=== PATIENT | female | born 2000 | race Caucasian/White ===

== ENCOUNTER 2022-05-16 17:05 | Outpatient (CLI) | payer OTHER, SELFPAY | END 2022-05-16 17:06 | disposition home or self-care (01) | LOC: AMB 05-18 16:49 | PROVIDERS: PCP Family Medicine; Visit Provider Family Medicine | DX: G40.909 Epilepsy, unspecified, not intractable, without status epilepticus (principal) | CPT/HCPCS: A0425; A0427 ==

== ENCOUNTER 2022-05-16 17:34 | Emergency (ER) | payer OTHER, SELFPAY ==
[2022-05-16] VITALS (7 sets, daily range): BP systolic 104–117; BP diastolic 55–78; PULSE 71–98; RESP 9–18; TEMP 37.3; O2SAT 97–99; BMI 22.9
[2022-05-16] MEDS: 0.9 % SODIUM CHLORIDE 1000 ml 1,000 ML 150 ML IV (18:35)
[2022-05-16 18:39] LABS: Basophils Absolute Auto 0.04 K/uL (0.00-0.30); Basophils Percent Auto 0.6 % (0.0-3.0); Eosinophils Absolute Auto 0.09 K/uL (0.00-0.50); Eosinophils Percent Auto 1.3 % (0.0-7.0); Hematocrit 38.6 % (33.0-51.0); Hemoglobin* 13.2 gm/dL (12.0-16.0); Immature Granulocytes Abs Auto 0.01 K/uL (0.00-0.30); Lymphocytes Absolute Auto 1.55 K/uL (0.90-2.90); Lymphocytes Percent Auto 22.4 % (20-44); Mean Corpuscular HGB Conc 34 gm/dL (32-36); Mean Corpuscular Hemoglobin 30 pg (26-34); Mean Corpuscular Volume 86 fL (80-100); Monocytes Percent Auto 6.2 % (0.0-11.0); Neutrophils Absolute Auto 4.79 K/uL (1.7-7.0); Neutrophils Percent Auto 69.4 % (42.0-72.0); Platelet Count* 236 K/uL (140-440); RDW Coefficient of Variation % 11.8 % (11.5-15.5); Red Blood Count 4.48 m/uL (4.00-5.20); White Blood Count* 6.91 K/uL (4.50-11.00)
[2022-05-16 18:43] LABS: Slide Review Reflex No
[2022-05-16 18:55] LABS: Albumin* 4.7 g/dL (3.3-5.0); Chloride* 107 mmol/L (96-114)
[2022-05-16 18:56] LABS: Potassium* 3.9 mmol/L (3.6-5.1); Sodium* 140 mmol/L (135-149)
[2022-05-16 18:58] LABS: Aspartate Amino Transferase* 29 U/L (12-35); Bilirubin Total* 0.8 mg/dL (0.1-1.5); Carbon Dioxide* 28 mmol/L (20-32); Creatinine* 0.6 mg/dL (0.5-1.5); Est. Creatinine Clearance* 156.31; Estimated Glomerular Filt Rate 132 ml/min; Total Protein* 8.5 g/dL (6.0-8.3)
[2022-05-16 18:59] LABS: Alanine Aminotransferase* 26 U/L (4-35); Alkaline Phosphatase* 83 U/L (40-150); Blood Urea Nitrogen* 11 mg/dL (5-24); Calcium* 9.1 mg/dL (8.4-10.6); Creatine Kinase* 34 U/L (41-117); Glucose* 92 mg/dL (60-115)
--- NOTE | 2022-05-16 20:13 | ED_ITS ---
HPI - Seizure General Chief Complaint: Seizure Stated Complaint: SEIZURE Time Seen by Provider: 05/16/22 18:09 History of Present Illness HPI Narrative: Ekta is a 21-year-old female patient presents emergency department with complaints of seizure activity. 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 The patient was witnessed to have shaking movements of her extremities but was reported to be talking during the shaking movements. The patient had her 1st episode approximately 2 weeks prior. She reports that episode was similar to activity today. She is unclear regarding exact symptoms, timing, or prodrome associated with the seizure. She is unaccompanied to the hospital. She was given 2 mg of Ativan and 5 mg of Valium in route to the hospital. She denies known loss of control of bowel or bladder, although she reports that has occurred with previous episodes. She denies mouth or tongue injuries. She denies any recent URI symptoms, except stressors, or significant changes in medications. Her primary care physician has recommended she stop her Lexapro an effort to start Prozac. She is not yet collected her Prozac prescription, and so she has not been taking an SSRI. At time of arrival to the Emergency Department, she denies all concerns or complaints. She reports she feels sleepy from the medications. Seizure History: Yes Place: school Review of Systems Const: Reports: fatigue and malaise; Denies: fever or chills Eyes: Denies: change in vision, blurry vision, light sensitivity or eye discomfort ENMT: Denies: throat pain, ear pain, vertigo, nasal discharge or nasal congestion Cardio: Denies: chest pain, palpitations, shortness of breath with exertion or shortness of breath when lying down Resp: Denies: shortness of breath or cough GI: Denies: abdominal pain, nausea, vomiting, diarrhea or constipation Integ/Breast: Denies: rash Neuro: Denies: headache, numbness in extremities, weakness in extremities, lack of coordination, dizziness, vertigo, confusion, behavioral changes, slurred speech or difficulty communicating thoughts Psych: Denies: anxiety or change in sleep pattern Endo: Reports: fatigue; Denies: excessive urination PFSH PFSH Social History Smoking Status: Never smoker Do you use any of these nicotine containing products: None Second hand tobacco smoke exposure: No How often do you have a drink containing alcohol: 2-4 times a month How many standard drinks containing alcohol do you have on a typical day: 1 or 2 How often do you have six or more drinks on one occasion: Less than monthly AUDIT-C Alcohol total score: 3 Non-prescribed substance use: denies use service: No Exam Const: Vital Signs, click to edit/add: Vital Signs - 24 hr 05/16/22 17:46 05/16/22 18:30 05/16/22 18:00 Temperature 99.2 F Pulse Rate [Right Femoral] 97 98 85 Respiratory Rate 18 18 9 L Blood Pressure [Ri ght Upper Arm] 109/65 115/78 117/64 Pulse Oximetry 98 98 98 Oxygen Delivery Me thod Room Air Room Air Room Air 05/16/22 17:42 Temperature Pulse Rate [Right Femoral] 84 Respiratory Rate 9 L Blood Pressure [Ri ght Upper Arm] 114/61 Pulse Oximetry 97 Oxygen Delivery Me thod Room Air Documenting provider has reviewed patient's vital signs: yes Common normals: no apparent distress, oriented x3 (sleepy), alert and well nourished General appearance: cooperative, comfortable, well developed and disheveled; not in distress and not anxious Orientation/consciousness: Yes awake, Yes oriented to person, Yes oriented to place and Yes oriented to time; not confused HENMT: Common normals: normocephalic, head/scalp atraumatic and hearing grossly normal bilaterally Head and scalp: normocephalic and atraumatic Face and sinus: normal facial exam (severe acne vulgaris bilaterally) Eye: Common normals: PERRL, EOMs intact bilaterally and conjunctivae normal General eye: normal appearance of both eyes and normal light reflex Alignment: alignment normal Eyelid: eyelids normal Conjunctiva: conjunctiva(e) normal Pupil: PERRL Direct Ophthalmoscopy: normal light reflex; no photophobia Neck & C-Spine: Common normals: full ROM, no lymphadenopathy and supple Resp: Common normals: normal respiratory effort, no retractions, no use of accessory muscles and clear to auscultation bilaterally Effort & inspection: able to speak in complete sentences Auscultation: clear to auscultation bilaterally Cardio: Common normals: regular rate, regular rhythm, S1 normal heart sound, S2 normal heart sound, no gallops and no murmurs Rate: regular rate Rhythm: regular rhythm Heart sounds: S1 normal and S2 normal GI: Common normals: Normal to inspection, nondistended, normoactive bowel sounds present, soft to palpation and non-tender Palpation: soft Extremity: Common normals: normal to inspection and full ROM Neuro: [place] Coma Scale: document GCS findings [place] coma scale eye opening: Spontaneous (4) [place] coma scale verbal response: Orientated (5) [place] coma scale motor response: Obey commands (6) [place] coma scale total score: 15 Common normals: oriented x3 (sleepy) Sensorium/orientation: awake, alert, oriented to person, oriented to place and oriented to time Speech: speech normal Sensory exam: double simultaneous stimulation for sensation normal Motor exam: strength 5/5 throughout and no pronator drift Psych: Common normals: mental status grossly normal, thought process normal, cooperative, affect normal, speech normal and activity/motor behavior normal Appearance: grossly normal Attitude: calm Activity/motor behavior: appropriate eye contact Speech: normal speech Thought process: normal thought process Thought content: normal thought content Attention/concentration: attention grossly intact Memory/cognition: memory grossly intact Skin: Common normals: no rashes or lesions noted General skin exam: no rashes or lesions noted Course Course Hospital Course: Kesha was brought to the emergency department for concern of potential seizure for further evaluation and treatment. In route, she was given medication to treat potential seizure. However, she was noted to be conversant during her seizure-like activity. She does have potential history of pseudo-seizure. She is not taking routine medications for seizure disorder. Her laboratory studies were as noted. She had no additional seizure-like activity while in the emergency department. At time of discharge, she feels confident that she is ready to discharge home. She is able to secure her own transportation. Vital Signs Vital signs: Initial Vital Signs Pulse Rate 84 05/16/22 17:42 Pulse Rhythm 05/16/22 17:42 Respiratory Rate 9 L 05/16/22 17:42 Respiratory Effort Spontaneous 05/16/22 17:42 Respiratory Depth Normal 05/16/22 17:42 Respiratory Pattern 05/16/22 17:42 Blood Pressure 114/61 05/16/22 17:42 Blood Pressure Mean 78 05/16/22 17:42 Pulse Oximetry 97 05/16/22 17:42 Oxygen Delivery Method 05/16/22 17:42 Vital Signs Pulse Rate 84 05/16/22 17:42 Respiratory Rate 9 L 05/16/22 17:42 Blood Pressure 114/61 05/16/22 17:42 Pulse Oximetry 97 05/16/22 17:42 Oxygen Delivery Method 05/16/22 17:42 Temperature 99.2 F 05/16/22 17:46 Pulse Rate 98 05/16/22 18:30 Respiratory Rate 18 05/16/22 18:30 Blood Pressure 115/78 05/16/22 18:30 Pulse Oximetry 98 05/16/22 18:30 Oxygen Delivery Method 05/16/22 18:30 MDM - Seizure MDM Narrative Medical decision making narrative: Differential diagnosis includes but is not limited to: epilepsy, drug/toxin ingestion, blood sugar abnormalities, cancer, syncope, malingering, and electrolyte imbalances. This includes a life-threatening complications of drug/toxin ingestion and cancer. Lab Data Labs: Lab Results 05/16/22 05/16/22 Range/Units 18:33 18:33 WBC 6.91 (4.50-11.00) K/uL RBC 4.48 (4.00-5.20) m/uL Hgb 13.2 (12.0-16.0) gm/dL Hct 38.6 (33.0-51.0) % MCV 86 (80-100) fL MCH 30 (26-34) pg MCHC 34 (32-36) gm/dL RDW Coeff of Amparo 11.8 (11.5-15.5) % Plt Count 236 (140-440) K/uL Neut % (Auto) 69.4 (42.0-72.0) % Lymph % (Auto) 22.4 (20-44) % [place] % (Auto) 6.2 (0.0-11.0) % Eos % (Auto) 1.3 (0.0-7.0) % Baso % (Auto) 0.6 (0.0-3.0) % Neut # (Auto) 4.79 (1.7-7.0) K/uL Lymph # (Auto) 1.55 (0.90-2.90) K/uL [place] # (Auto) 0.40 (0.00-0.90) K/UL Eos # (Auto) 0.09 (0.00-0.50) K/uL Baso # (Auto) 0.04 (0.00-0.30) K/uL Abs Immat Gran (auto) 0.01 (0.00-0.30) K/uL Sodium 140 (135-149) mmol/L Potassium 3.9 (3.6-5.1) mmol/L Chloride 107 (96-114) mmol/L Carbon Dioxide 28 (20-32) mmol/L BUN 11 (5-24) mg/dL Creatinine 0.6 (0.5-1.5) mg/dL Estimated Creat Clear 156.31 Estimated GFR 132 ml/min Glucose 92 (60-115) mg/dL Calcium 9.1 (8.4-10.6) mg/dL Total Bilirubin 0.8 (0.1-1.5) mg/dL AST 29 (12-35) U/L ALT 26 (4-35) U/L Alkaline Phosphatase 83 (40-150) U/L Total Creatine Kinase 34 L (41-117) U/L Total Protein 8.5 H (6.0-8.3) g/dL Albumin 4.7 (3.3-5.0) g/dL Discharge Plan Discharge Clinical Impression: Observed seizure-like activity Patient Disposition: Home, Self-Care Condition: Stable Instructions: Nonepileptic Seizures (ED) Additional Instructions: Thank you for choosing [facility] for your care today. Your care today was on an emergency basis and is not intended to be a substitute for on-going care with your primary physician. I recommend calling primary care for follow- up in the next 3-5 days for follow-up as needed and to review any labs, testing, or imaging you have had in the Emergency Department. If new or worsening symptoms develop or you have any concerns in the meantime, please call your primary care clinic or return to the ER for re-evaluation. Activity Level: Activity as Tolerated Discharge Diet: Regular and Heart Healthy (2 gm sodium, low fat) Follow Up/Referrals: Ashlee Nation MD [Primary Care Provider] - 05/23/22 (Discuss seizure versus pseudo-seizure disorder with recommendation for consideration of neurologic evaluation to assist with diagnosis.) Stand Alone Forms: [employer] Info Instructions
--- NOTE | 2022-05-16 20:39 | ED.NURSE ---
was able to get ua and this is in lab. is drowsy but alert and oriented. was able to get in and out of bed. denies pain.
[2022-05-16 20:42] LABS: Appearance Urine Cloudy (Clear); Bilirubin Urine Negative (Negative); Blood Urine Negative (Negative); Color Urine Yellow (Yellow); Glucose Urine Negative (Negative); Ketones Urine Negative (Negative); Leukocyte Esterase Urine Trace (Negative); Nitrite Urine Negative (Negative); Protein Urine Negative (Negative); Specific Gravity Urine 1.015 (1.000-1.030); Urobilinogen Urine 0.2 (0.2-1.0); pH Urine 8.5 (5.0-8.5)
[2022-05-16 20:49] LABS: Amphetamine Screen Urine Negative (Negative); Barbiturate Screen Urine Negative (Negative); Cannabinoid Screen Urine Negative (Negative); Cocaine Screen Urine Negative (Negative); Methadone Screen Urine Negative (Negative); Methamphetamines Screen Urine Negative (Negative); Opiate Screen Urine Negative (Negative); Oxycodone Screen Urine Negative (Negative); Phencyclidine Screen Urine Negative (Negative); Tricyclic Antidepressant Urine Negative (Negative)
[2022-05-16 20:51] LABS: Bacteria Urine Moderate; RBC Urine 0-2 (0-2); Squamous Epithelial Cell Urine Moderate (None-Few)
[2022-05-16 21:14] LABS: Benzodiazepines Screen Urine POSITIVE (Negative)
[2022-05-20 14:54] LABS: C-Peptide, Serum or Plasma 1.2 ng/mL (0.5-3.3)
== END 2022-05-16 21:15 | disposition home or self-care (01) ==
PROVIDERS: Emergency Provider Family Medicine; PCP Family Medicine
DX: G40.89 Other seizures (principal)
CPT/HCPCS: 36415; 80053; 80306; 81003; 81015; 82550; 84681; 85025; 87086; 96360; 96361; 99283; 99284; J7030

== ENCOUNTER 2022-06-04 20:00 | Outpatient (CLI) | payer OTHER, SELFPAY | END 2022-06-04 20:01 | disposition home or self-care (01) | LOC: AMB 06-18 07:27 | PROVIDERS: PCP Family Medicine; Visit Provider Family Medicine | DX: R56.9 Unspecified convulsions (principal); R55 Syncope and collapse | CPT/HCPCS: A0425; A0427 ==

== ENCOUNTER 2022-06-04 20:28 | Emergency (ER) | payer OTHER, SELFPAY ==
[2022-06-04] VITALS (28 sets, daily range): BP systolic 113–127; BP diastolic 59–88; PULSE 62–92; RESP 15–16; TEMP 36.9; O2SAT 87–100
--- NOTE | 2022-06-04 20:42 | ED.NURSE ---
seizure activity witnessed by RN and .
[2022-06-04] MEDS: LORazepam 2 MG/ML inj 0.5 MG IVP (20:49)
[2022-06-04] MEDS: 0.9 % SODIUM CHLORIDE 1000 ml 1,000 ML IV (20:49)
[2022-06-04 20:57] LABS: Basophils Absolute Auto 0.02 K/uL (0.00-0.30); Basophils Percent Auto 0.3 % (0.0-3.0); Eosinophils Absolute Auto 0.18 K/uL (0.00-0.50); Eosinophils Percent Auto 2.5 % (0.0-7.0); Hematocrit 36.5 % (33.0-51.0); Hemoglobin* 12.7 gm/dL (12.0-16.0); Immature Granulocytes Abs Auto 0.01 K/uL (0.00-0.30); Lymphocytes Percent Auto 31.6 % (20-44); Mean Corpuscular HGB Conc 35 gm/dL (32-36); Mean Corpuscular Hemoglobin 30 pg (26-34); Mean Corpuscular Volume 85 fL (80-100); Monocytes Percent Auto 8.1 % (0.0-11.0); Neutrophils Absolute Auto 4.17 K/uL (1.7-7.0); Neutrophils Percent Auto 57.4 % (42.0-72.0); Platelet Count* 232 K/uL (140-440); RDW Coefficient of Variation % 11.7 % (11.5-15.5); Red Blood Count 4.31 m/uL (4.00-5.20); White Blood Count* 7.27 K/uL (4.50-11.00)
[2022-06-04 20:59] LABS: Slide Review Reflex No
--- NOTE | 2022-06-04 21:03 | ED.SEIZURE ---
HPI - Seizure General Chief Complaint: Seizure Stated Complaint: Siezure Time Seen by Provider: 06/04/22 20:44 History of Present Illness HPI Narrative: 21-year-old young woman presenting via EMS to the emergency department with concern of seizure. EMS report on arrival is that she has been recently diagnosed with seizure disorder and a benign brain tumor on imaging -- reported to Ekta 2 days ago.. Kesha is able to articulate to me during 1 of these tensing/shaking episodes that it is unclear whether or not this brain tumor is related. Sounds like it might be a meningioma. I am present upon arrival into receive EMS report. She is pretty tired at that time. As report the temperature is been elevated. She had been spending some time in the [employer] today. Note that the clothes were dampened and temperature was 99 point something. Was noted to have relaxed this activity following administration of Versed by EMS. Continue to question Ekta during in between episodes as they began to recur as she is able to answer a little bit through created teeth. She is conscious. She does have some chest discomfort I think this would probably be from tensing as I palpate the right greater than pectoralis muscles, this is the area of pain. She denies cough or cold symptoms. No dysuria. No loss of bowel or bladder control. Denies visual symptoms. Is not complaining of headache. No reported loss of sensation. No vomiting. Was actually seen approximately 3 weeks ago in this emergency department with similar presentation. Seizure History: Yes Related Data Home Medications Medication Instructions Recorded Confirmed lorazepam 0.5 mg tablet (Ativan) 0.5 mg PO Q6H PRN 06/04/22 06/04/22 sertraline 50 mg tablet 50 mg PO DAILY 06/04/22 06/04/22 Allergies Allergy/AdvReac Type Severity Reaction Status Date / Time No Known Drug Allergies Allergy Verified 06/04/22 21:28 Review of Systems Status of ROS: Reports: 6 or more systems reviewed and unremarkable except as noted in History and below [facility] Social History Smoking Status: Never smoker Do you use any of these nicotine containing products: None Second hand tobacco smoke exposure: No How often do you have a drink containing alcohol: 2-4 times a month How many standard drinks containing alcohol do you have on a typical day: 1 or 2 How often do you have six or more drinks on one occasion: Less than monthly AUDIT-C Alcohol total score: 3 Non-prescribed substance use: denies use service: No Exam Narrative: Exam Narrative: Calm. Again on arrival no seizure-like activity. I am called back to the room and continue interview when ?seizures? are returning. She will tense up curl forward just a little bit in the bed getting a little red in her face. Clenching jaw tensing chest and arms shaking the right bald up fist and arm more than the left. Eyes do close during these episodes. Abdominal muscles tense up as well. These last maybe 5 seconds in most intensity and then she relaxes back into the bed. Skin is warm and dry without evidence of trauma. Heavy closed comedonal acne some open comedonal acne over her face. Skin is flushed a little bit consistent with spending time in the sun today at the [employer]. Eyes are rolling back a little bit at the end of 1 of these episodes though she is conscious/aware, communicating. Cranial nerves 2-12 look to be intact. Head otherwise atraumatic. Clearly able to move all extremities. Lungs are clear. Cardiovascular is elevated rate but regular rhythm no murmurs appreciated. Abdomen is soft appears to be nontender. Const: Vital Signs, click to edit/add: Vital Signs - 24 hr 06/04/22 20:37 06/04/22 21:03 06/04/22 21:03 Temperature 98.5 F Pulse Rate 90 Pulse Rate [Left P ulse Oximeter] 92 Respiratory Rate 16 Blood Pressure 117/64 Blood Pressure [Ri ght Upper Arm] 120/63 Pulse Oximetry 99 97 [facility] 06/04/22 21:04 06/04/22 21:10 06/04/22 21:21 Temperature Pulse Rate 86 75 79 Pulse Rate [Left P ulse Oximeter] Respiratory Rate Blood Pressure 122/67 Blood Pressure [Ri ght Upper Arm] Pulse Oximetry 97 97 98 Oxygen Delivery Il thod 06/04/22 21:22 06/04/22 21:30 06/04/22 21:32 Temperature Pulse Rate 75 88 83 Pulse Rate [Left P ulse Oximeter] Respiratory Rate Blood Pressure 120/75 Blood Pressure [Ri ght Upper Arm] Pulse Oximetry 98 100 [facility] 06/04/22 21:51 06/04/22 21:52 06/04/22 22:00 Temperature Pulse Rate 69 70 68 Pulse Rate [Left P ulse Oximeter] Respiratory Rate Blood Pressure 117/72 Blood Pressure [Ri ght Upper Arm] Pulse Oximetry 97 97 98 Oxygen Delivery Me thod 06/04/22 22:02 06/04/22 23:15 06/04/22 22:03 Temperature Pulse Rate 69 72 Pulse Rate [Left P ulse Oximeter] 63 Respiratory Rate 15 Blood Pressure 119/69 Blood Pressure [Ri ght Upper Arm] 115/74 Pulse Oximetry 98 98 98 Oxygen Delivery Me thod Room Air 06/04/22 22:10 06/04/22 22:12 06/04/22 22:20 Temperature Pulse Rate 63 65 65 Pulse Rate [Left P ulse Oximeter] Respiratory Rate Blood Pressure 118/59 L Blood Pressure [Ri ght Upper Arm] Pulse Oximetry 96 96 96 Oxygen Delivery Me thod 06/04/22 22:21 06/04/22 22:30 06/04/22 22:31 Temperature Pulse Rate 62 70 72 Pulse Rate [Left P ulse Oximeter] Respiratory Rate Blood Pressure 113/67 123/88 Blood Pressure [Ri ght Upper Arm] Pulse Oximetry 97 87 L 98 Oxygen Delivery Me thod 06/04/22 22:40 06/04/22 22:42 06/04/22 22:50 Temperature Pulse Rate 76 76 71 Pulse Rate [Left P ulse Oximeter] Respiratory Rate Blood Pressure 120/80 Blood Pressure [Ri ght Upper Arm] Pulse Oximetry 98 99 96 Oxygen Delivery Me thod 06/04/22 22:51 06/04/22 23:00 06/04/22 23:02 Temperature Pulse Rate 70 72 Pulse Rate [Left P ulse Oximeter] Respiratory Rate Blood Pressure 127/79 120/77 Blood Pressure [Ri ght Upper Arm] Pulse Oximetry 97 98 Oxygen Delivery Me thod 06/04/22 23:10 06/04/22 23:12 Temperature Pulse Rate 63 62 Pulse Rate [Left P ulse Oximeter] Respiratory Rate Blood Pressure 115/74 Blood Pressure [Ri ght Upper Arm] Pulse Oximetry 96 98 Oxygen Delivery Me thod Documenting provider has reviewed patient's vital signs: yes Course Course Hospital Course: Monitor in the emergency department with cardiac and oximetry monitoring. She has IV in her left antecubital. Will be augmenting this with L normal saline and dosing with Ativan as these episodes seem to be recurring at least during my conversation with her almost every 30 seconds. I asked her if she thinks Ativan to be helpful. She says maybe as relaxing from another episode. Reevaluation(s) Reevaluation #1: Friend has arrived. I am reassessing Ms. Carreon. She does appear little sleepy. She reports feeling just the little bit of dizziness with head movement vague sense of lightheadedness. Otherwise feels markedly improved and feels she can safely return home. She does note that has followup in 6 days with Neurology here in town. Vital Signs Vital signs: Initial Vital Signs Temperature 98.5 F 06/04/22 20:37 Temperature Source Temporal Artery Scan 06/04/22 20:37 Pulse Rate 92 06/04/22 20:37 Pulse Rhythm 06/04/22 20:37 Pulse Strength 0+ Absent 06/04/22 20:37 Respiratory Rate 16 06/04/22 20:37 Blood Pressure 120/63 06/04/22 20:37 Blood Pressure Mean 82 06/04/22 20:37 Blood Pressure Position Semi-Fowlers 06/04/22 20:37 Pulse Oximetry 99 06/04/22 20:37 Oxygen Delivery Method 06/04/22 20:37 Vital Signs Temperature 98.5 F 06/04/22 20:37 Pulse Rate 92 06/04/22 20:37 Respiratory Rate 16 06/04/22 20:37 Blood Pressure 120/63 06/04/22 20:37 Pulse Oximetry 99 06/04/22 20:37 Oxygen Delivery Method 06/04/22 20:37 Temperature 98.5 F 06/04/22 20:37 Pulse Rate 63 06/04/22 23:15 Respiratory Rate 15 06/04/22 23:15 Blood Pressure 115/74 06/04/22 23:15 Pulse Oximetry 98 06/04/22 23:15 Oxygen Delivery Method 06/04/22 23:15 MDM - Seizure MDM Narrative Medical decision making narrative: A certainly is not a typical seizure. Some sort of pseudo-seizure? Conversion disorder? And does not sound as though the, what I understand is a, meningioma is likely playing a role here but to be determined further. Incidentally I neglected to verify whether not currently menstruating as explanation potentially for findings in urine. If this is the case might be related to further events this evening. Medical Records Attestation: I reviewed the patient's medical records. Lab Data Attestation: I reviewed the patient's lab results. Labs: Lab Results 06/04/22 06/04/22 06/04/22 Range/Units 20:46 20:46 20:46 WBC 7.27 (4.50-11.00) K/uL RBC 4.31 (4.00-5.20) m/uL Hgb 12.7 (12.0-16.0) gm/dL Hct 36.5 (33.0-51.0) % MCV 85 (80-100) fL MCH 30 (26-34) pg MCHC 35 (32-36) gm/dL RDW Coeff of Amparo 11.7 (11.5-15.5) % Plt Count 232 (140-440) K/uL Neut % (Auto) 57.4 (42.0-72.0) % Lymph % (Auto) 31.6 (20-44) % [place] % (Auto) 8.1 (0.0-11.0) % Eos % (Auto) 2.5 (0.0-7.0) % Baso % (Auto) 0.3 (0.0-3.0) % Neut # (Auto) 4.17 (1.7-7.0) K/uL Lymph # (Auto) 2.30 (0.90-2.90) K/uL [place] # (Auto) 0.60 (0.00-0.90) K/UL Eos # (Auto) 0.18 (0.00-0.50) K/uL Baso # (Auto) 0.02 (0.00-0.30) K/uL Abs Immat Gran (auto) 0.01 (0.00-0.30) K/uL Sodium 140 (135-149) mmol/L Potassium 3.8 (3.6-5.1) mmol/L Chloride 106 (96-114) mmol/L Carbon Dioxide 21 (20-32) mmol/L BUN 16 (5-24) mg/dL Creatinine 0.6 (0.5-1.5) mg/dL Estimated GFR 132 ml/min Glucose 109 (60-115) mg/dL Calcium 9.0 (8.4-10.6) mg/dL Magnesium 2.1 (1.5-2.6) mg/dL Total Bilirubin 0.4 (0.1-1.5) mg/dL Direct Bilirubin 0.2 (0.0-0.5) mg/dL AST 28 (12-35) U/L ALT 24 (4-35) U/L Alkaline Phosphatase 88 (40-150) U/L Total Creatine Kinase 50 (41-117) U/L C-Reactive Protein < 0.5 L (0.5-1.0) mg/dL Total Protein 8.6 H (6.0-8.3) g/dL Albumin 4.8 (3.3-5.0) g/dL HCG, Qual (Negative) Urine Color (Yellow) Urine Appearance (Clear) Urine pH (5.0-8.5) Ur Specific [place] (1.000-1.030) Urine Protein (Negative) Urine Glucose (UA) (Negative) Urine Ketones (Negative) Urine Blood (Negative) Urine Nitrite (Negative) Urine Bilirubin (Negative) Urine Urobilinogen (0.2-1.0) Ur Leukocyte Esterase (Negative) Urine RBC (0-2) Urine WBC (0-5) Ur Squamous Epith Cells (None-Few) Amorphous Sediment (None) Urine Bacteria (None) Acetaminophen < 10.0 L (10.0-30.0) ug/mL Ethyl Alcohol < 0.01 L (0.01-0.03) % SARS-CoV-2 (PCR) (Negative) 06/04/22 06/04/22 Range/Units 21:06 21:15 WBC (4.50-11.00) K/uL RBC (4.00-5.20) m/uL Hgb (12.0-16.0) gm/dL Hct (33.0-51.0) % MCV (80-100) fL MCH (26-34) pg MCHC (32-36) gm/dL RDW Coeff of Amparo (11.5-15.5) % Plt Count (140-440) K/uL Neut % (Auto) (42.0-72.0) % Lymph % (Auto) (20-44) % [place] % (Auto) (0.0-11.0) % Eos % (Auto) (0.0-7.0) % Baso % (Auto) (0.0-3.0) % Neut # (Auto) (1.7-7.0) K/uL Lymph # (Auto) (0.90-2.90) K/uL [place] # (Auto) (0.00-0.90) K/UL Eos # (Auto) (0.00-0.50) K/uL Baso # (Auto) (0.00-0.30) K/uL Abs Immat Gran (auto) (0.00-0.30) K/uL Sodium (135-149) mmol/L Potassium (3.6-5.1) mmol/L Chloride (96-114) mmol/L Carbon Dioxide (20-32) mmol/L BUN (5-24) mg/dL Creatinine (0.5-1.5) mg/dL Estimated GFR ml/min Glucose (60-115) mg/dL Calcium (8.4-10.6) mg/dL Magnesium (1.5-2.6) mg/dL Total Bilirubin (0.1-1.5) mg/dL Direct Bilirubin (0.0-0.5) mg/dL AST (12-35) U/L ALT (4-35) U/L Alkaline Phosphatase (40-150) U/L Total Creatine Kinase (41-117) U/L C-Reactive Protein (0.5-1.0) mg/dL Total Protein (6.0-8.3) g/dL Albumin (3.3-5.0) g/dL HCG, Qual Negative (Negative) Urine Color Yellow (Yellow) Urine Appearance Cloudy A (Clear) Urine pH 7.0 (5.0-8.5) Ur Specific [place] 1.025 (1.000-1.030) Urine Protein Negative (Negative) Urine Glucose (UA) Negative (Negative) Urine Ketones Negative (Negative) Urine Blood 2+ A (Negative) Urine Nitrite Negative (Negative) Urine Bilirubin Negative (Negative) Urine Urobilinogen 0.2 (0.2-1.0) Ur Leukocyte Esterase Negative (Negative) Urine RBC 5-10 A (0-2) Urine WBC 2-5 (0-5) Ur Squamous Epith Cells Few (None-Few) Amorphous Sediment Many A (None) Urine Bacteria None (None) Acetaminophen (10.0-30.0) ug/mL Ethyl Alcohol (0.01-0.03) % SARS-CoV-2 (PCR) Negative SARS-CoV-2 (Negative) ECG Data Attestation: I personally reviewed and interpreted this ECG as follows: (Normal sinus rhythm rate of 98. No ischemic changes) Discharge Plan Discharge Clinical Impression: Convulsions Patient Disposition: Home w/ Parent or Adult Condition: Improved Additional Instructions: Stay well hydrated. Get quality and regular sleep. Can use your Ativan if this returns. Return for unremitting symptoms. Please follow-up with neurology in 6 days as scheduled. Consider also around this time rechecking your urine. Some white and red cells were present. We will be culturing this though I do not think this represents an infection. Prescriptions: No Action sertraline 50 mg tablet 50 mg PO DAILY lorazepam [Ativan] 0.5 mg tablet 0.5 mg PO Q6H PRN Follow Up/Referrals: Ashlee Nation MD [Primary Care Provider] - Stand Alone Forms: [employer] Info Instructions
[2022-06-04 21:10] LABS: Albumin* 4.8 g/dL (3.3-5.0)
[2022-06-04 21:12] LABS: Chloride* 106 mmol/L (96-114); Potassium* 3.8 mmol/L (3.6-5.1); Sodium* 140 mmol/L (135-149)
[2022-06-04 21:13] LABS: Alkaline Phosphatase* 88 U/L (40-150); Aspartate Amino Transferase* 28 U/L (12-35); Bilirubin Direct* 0.2 mg/dL (0.0-0.5); Bilirubin Total* 0.4 mg/dL (0.1-1.5); Magnesium* 2.1 mg/dL (1.5-2.6); Total Protein* 8.6 g/dL (6.0-8.3)
[2022-06-04 21:14] LABS: Alanine Aminotransferase* 24 U/L (4-35); Creatinine* 0.6 mg/dL (0.5-1.5); Estimated Glomerular Filt Rate 132 ml/min
[2022-06-04 21:15] LABS: Blood Urea Nitrogen* 16 mg/dL (5-24); Carbon Dioxide* 21 mmol/L (20-32); Glucose* 109 mg/dL (60-115)
[2022-06-04 21:47] LABS: Acetaminophen* < 10.0 ug/mL (10.0-30.0); C Reactive Protein* < 0.5 mg/dL (0.5-1.0); Ethanol* < 0.01 % (0.01-0.03)
[2022-06-04 21:52] LABS: Appearance Urine Cloudy (Clear); Bilirubin Urine Negative (Negative); Blood Urine 2+ (Negative); Color Urine Yellow (Yellow); Glucose Urine Negative (Negative); Ketones Urine Negative (Negative); Leukocyte Esterase Urine Negative (Negative); Nitrite Urine Negative (Negative); Protein Urine Negative (Negative); Specific Gravity Urine 1.025 (1.000-1.030); Urobilinogen Urine 0.2 (0.2-1.0)
[2022-06-04 21:53] LABS: HCG Qualitative* Negative (Negative)
[2022-06-04 22:06] LABS: Amorphous Sediment Urine Many; Squamous Epithelial Cell Urine Few (None-Few)
[2022-06-04 22:13] LABS: SARS PCR* Negative SARS-CoV-2 (Negative)
[2022-06-04 23:33] LABS: Creatine Kinase* 50 U/L (41-117)
== END 2022-06-04 23:19 | disposition home or self-care (01) ==
PROVIDERS: Emergency Provider Family Medicine; PCP Family Medicine
DX: R56.9 Unspecified convulsions (principal)
CPT/HCPCS: 36415; 80048; 80076; 80143; 81001; 82077; 82550; 83735; 84703; 85025; 86140; 87635; 93005; 94761; 96374; 99284; J2060; J7030

== ENCOUNTER 2022-06-29 19:02 | Outpatient (CLI) | payer OTHER, SELFPAY | END 2022-06-29 19:03 | disposition home or self-care (01) | LOC: AMB 08-21 15:15 | PROVIDERS: PCP Family Medicine; Visit Provider Family Medicine | DX: G40.909 Epilepsy, unspecified, not intractable, without status epilepticus (principal); R41.82 Altered mental status, unspecified | CPT/HCPCS: A0425; A0433 ==

== ENCOUNTER 2022-06-29 19:30 | Observation (INO) | payer OTHER, SELFPAY ==
[2022-06-29] VITALS (13 sets, daily range): BP systolic 107–127; BP diastolic 57–80; PULSE 84–114; RESP 16–18; TEMP 36.7–36.9; O2SAT 96–99; BMI 24.3; BMI 21.9
--- NOTE | 2022-06-29 19:55 | ED.GENADULT ---
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 She has been attempted to be scheduled for Urology consultation or more prolonged EEG currently is only getting Valium she read obtained from the EMS and she got a total of 10 mg by report she had some episodes of shaking today. Her some thought that this might be pseudoseizures well or panic even. She has been somnolent but arousable, slurred speech consistent with the benzodiazepine use. No focal neurologic finding. However when I did attempt to check her pulse she went into at that did not resemble seizure but look more pseudo seizure like she is unable to really give a history at this point Related Data Home Medications Medication Instructions Recorded Confirmed lorazepam 0.5 mg tablet (Ativan) 0.5 mg PO Q6H PRN 06/04/22 06/29/22 sertraline 50 mg tablet 50 mg PO DAILY 06/04/22 06/29/22 spironolactone 50 mg tablet 50 mg PO DAILY 06/29/22 06/29/22 Allergies Allergy/AdvReac Type Severity Reaction Status Date / Time No Known Drug Allergies Allergy Verified 06/04/22 21:28 Review of Systems Status of ROS: Reports: unobtainable due to mental status [facility] Medical History Pseudoseizures Surgical History No significant past surgical history Social History Smoking Status: Never smoker Do you use any of these nicotine containing products: None Second hand tobacco smoke exposure: No How often do you have a drink containing alcohol: 2-4 times a month How many standard drinks containing alcohol do you have on a typical day: 1 or 2 How often do you have six or more drinks on one occasion: Less than monthly AUDIT-C Alcohol total score: 3 Non-prescribed substance use: denies use service: No Exam Narrative: Exam Narrative: Objective: Patient is arousable but some likely due to medication, had a pseudo-seizure type shaking spell the last about 3 seconds id HEENT is unremarkable Lungs are clear Heart rhythm regular Extremities she has moved to stay as good peripheral perfusion vital signs are on remark Const: Vital Signs, click to edit/add: Vital Signs - 24 hr 06/29/22 19:41 06/29/22 19:39 06/29/22 20:05 Temperature 98.0 F 98.0 F Pulse Rate Pulse Rate [Right Pulse Oximeter] 104 H 104 H Respiratory Rate 18 18 Blood Pressure Blood Pressure [Ri ght Upper Arm] 109/61 109/61 Pulse Oximetry 99 99 99 Oxygen Delivery Me thod Room Air Room Air 06/29/22 20:00 06/29/22 20:01 Temperature Pulse Rate 111 H 114 H Pulse Rate [Right Pulse Oximeter] Respiratory Rate Blood Pressure 107/67 Blood Pressure [Ri ght Upper Arm] Pulse Oximetry 96 97 Oxygen Delivery Me thod Course Vital Signs Vital signs: Initial Vital Signs Temperature 98.0 F 06/29/22 19:39 Temperature Source Temporal Artery Scan 06/29/22 19:39 Pulse Rate 104 H 06/29/22 19:39 Respiratory Rate 18 06/29/22 19:39 Respiratory Effort Spontaneous 06/29/22 19:39 Respiratory Depth Normal 06/29/22 19:39 Respiratory Pattern 06/29/22 19:39 Blood Pressure 109/61 06/29/22 19:39 Blood Pressure Mean 77 06/29/22 19:39 Blood Pressure Position Sitting 06/29/22 19:39 Pulse Oximetry 99 06/29/22 19:39 Oxygen Delivery Method 06/29/22 19:39 Vital Signs Temperature 98.0 F 06/29/22 19:39 Pulse Rate 104 H 06/29/22 19:39 Respiratory Rate 18 06/29/22 19:39 Blood Pressure 109/61 06/29/22 19:39 Pulse Oximetry 99 06/29/22 19:39 Oxygen Delivery Method 06/29/22 19:39 Temperature 98.0 F 06/29/22 19:41 Pulse Rate 114 H 06/29/22 20:01 Respiratory Rate 18 06/29/22 19:41 Blood Pressure 107/67 06/29/22 20:01 Pulse Oximetry 99 06/29/22 20:05 Oxygen Delivery Method 06/29/22 19:41 Medical Decision Making MDM Narrative Medical decision making narrative: Patient has a history of seizure type spells versus pseudo-seizure it appears. At this point she is very somnolent from her medication. My suspicion is wishes admitted to the hospital for observation, and monitoring, neurology consult as an outpatient would be reasonable again. At this point I think she is too somnolent to go home and with this ill-defined shaking a studies would be appropriate. Lab Data Labs: Lab Results 06/29/22 06/29/22 06/29/22 Range/Units 20:07 20:07 20:07 WBC 7.56 (4.50-11.00) K/uL RBC 4.33 (4.00-5.20) m/uL Hgb 12.8 (12.0-16.0) gm/dL Hct 36.5 (33.0-51.0) % MCV 84 (80-100) fL MCH 30 (26-34) pg MCHC 35 (32-36) gm/dL RDW Coeff of Amparo 11.9 (11.5-15.5) % Plt Count 241 (140-440) K/uL Neut % (Auto) 67.7 (42.0-72.0) % Lymph % (Auto) 23.3 (20-44) % [place] % (Auto) 7.7 (0.0-11.0) % Eos % (Auto) 0.7 (0.0-7.0) % Baso % (Auto) 0.5 (0.0-3.0) % Neut # (Auto) 5.12 (1.7-7.0) K/uL Lymph # (Auto) 1.76 (0.90-2.90) K/uL [place] # (Auto) 0.60 (0.00-0.90) K/UL Eos # (Auto) 0.05 (0.00-0.50) K/uL Baso # (Auto) 0.04 (0.00-0.30) K/uL Abs Immat Gran (auto) 0.01 (0.00-0.30) K/uL Sodium 140 (135-149) mmol/L Potassium 3.7 (3.6-5.1) mmol/L Chloride 107 (96-114) mmol/L Carbon Dioxide 21 (20-32) mmol/L BUN 13 (5-24) mg/dL Creatinine 0.7 (0.5-1.5) mg/dL Estimated Creat Clear 129.32 Estimated GFR 127 ml/min Glucose 93 (60-115) mg/dL Calcium 9.2 (8.4-10.6) mg/dL Total Bilirubin 0.5 (0.1-1.5) mg/dL Direct Bilirubin 0.0 (0.0-0.5) mg/dL AST 32 (12-35) U/L ALT 39 H (4-35) U/L Alkaline Phosphatase 84 (40-150) U/L Total Protein 8.2 (6.0-8.3) g/dL Albumin 4.7 (3.3-5.0) g/dL SARS-CoV-2 (PCR) Negative SARS-CoV-2 (Negative) Discharge Plan Discharge Clinical Impression: Episode of shaking Patient Disposition: Admitted As Inpatient Condition: Stable
[2022-06-29] MEDS: 0.9 % SODIUM CHLORIDE 500 ML 500 ML IV (20:11)
[2022-06-29 20:31] LABS: Basophils Absolute Auto 0.04 K/uL (0.00-0.30); Basophils Percent Auto 0.5 % (0.0-3.0); Eosinophils Absolute Auto 0.05 K/uL (0.00-0.50); Eosinophils Percent Auto 0.7 % (0.0-7.0); Hematocrit 36.5 % (33.0-51.0); Hemoglobin* 12.8 gm/dL (12.0-16.0); Immature Granulocytes Abs Auto 0.01 K/uL (0.00-0.30); Lymphocytes Absolute Auto 1.76 K/uL (0.90-2.90); Lymphocytes Percent Auto 23.3 % (20-44); Mean Corpuscular HGB Conc 35 gm/dL (32-36); Mean Corpuscular Hemoglobin 30 pg (26-34); Mean Corpuscular Volume 84 fL (80-100); Monocytes Percent Auto 7.7 % (0.0-11.0); Neutrophils Absolute Auto 5.12 K/uL (1.7-7.0); Neutrophils Percent Auto 67.7 % (42.0-72.0); Platelet Count* 241 K/uL (140-440); RDW Coefficient of Variation % 11.9 % (11.5-15.5); Red Blood Count 4.33 m/uL (4.00-5.20); White Blood Count* 7.56 K/uL (4.50-11.00)
[2022-06-29 20:32] LABS: Albumin* 4.7 g/dL (3.3-5.0); Slide Review Reflex No
[2022-06-29 20:34] LABS: Chloride* 107 mmol/L (96-114); Potassium* 3.7 mmol/L (3.6-5.1); Sodium* 140 mmol/L (135-149)
[2022-06-29 20:35] LABS: Alanine Aminotransferase* 39 U/L (4-35); Alkaline Phosphatase* 84 U/L (40-150); Aspartate Amino Transferase* 32 U/L (12-35); Bilirubin Total* 0.5 mg/dL (0.1-1.5); Blood Urea Nitrogen* 13 mg/dL (5-24); Carbon Dioxide* 21 mmol/L (20-32); Creatinine* 0.7 mg/dL (0.5-1.5); Est. Creatinine Clearance* 129.32; Estimated Glomerular Filt Rate 127 ml/min; Glucose* 93 mg/dL (60-115); Total Protein* 8.2 g/dL (6.0-8.3)
[2022-06-29 20:36] LABS: Calcium* 9.2 mg/dL (8.4-10.6)
--- NOTE | 2022-06-29 21:50 | PM.IMHP1 ---
Hospitalist- H&P: HPI History of Present Illness Date Seen: 06/29/22 Chief complaint: Seizure Narrative: Ekta Carreon is a 21 year old female who was BIBA for recurrent shaking/seizing spells. These episodes 1st began in April of 2022, she was seen by her PCP locally and referred to Neurology She notes that her episodes are often preceded by lightheadedness and a feeling of fear. Today she had an episode that was not responsive to Ativan, and she felt more tired than usual, so called EMS. She referred CV a total of 10 mg of Valium by EMS prior to arrival to the emergency room. Prior to today, patient notes that her last episode was yesterday, on further questioning she believes she is having them almost daily at this time. She has not had any loss of bowel or bladder function, she is awake and aware when episodes are happening (typically has shaking of extremities and head). Feels fairly tired, unsure if this is in relation to her shaking episodes or Valium. ER Course and Findings: - reassuring labs - 2 more episodes of shaking (BUEs and trunk), remained awake and verbal during episodes - fairly somnolent after receiving Valium, lives in a dorm locally so was admitted overnight for monitoring Patient has been seen by Dr. Piña of Neurology at [facility] for her symptoms. MRI performed 06/02/2022: 1. No acute intracranial abnormality. 2. There is a 7 mm right frontal convexity calcified meningioma. No significant mass effect on the underlying parenchyma and no parenchymal edema. 3. Few scattered foci of T2 prolongation in the supratentorial white matter are nonspecific. Differential considerations include sequela of migraine headaches, hypertension, diabetes, and collagen vascular disease. EEG performed 06/17/2022 with results noted below. Ekta's past medical history also includes mild acne and anxiety. Her PCP is Dr. Nation locally. 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 She is nonsmoker, rare ETOH user (last 3 weeks ago), nondrug user. Review of Systems Status of ROS: Reports: 10 or more systems reviewed and unremarkable except as noted in History and below [facility] Medical History (Updated 06/29/22 @ 21:53 by Rosa Hoover MD) Acne Anxiety Meningioma Pseudoseizures Surgical History (Updated 06/29/22 @ 21:53 by Rosa Hoover MD) H/O wisdom tooth extraction No significant past surgical history Social History Highest level of school completed/degree received: some college, no degree Smoking Status: Never smoker Do you use any of these nicotine containing products: None Second hand tobacco smoke exposure: No How often do you have a drink containing alcohol: 2-4 times a month Alcohol type: beer How many standard drinks containing alcohol do you have on a typical day: 1 or 2 How often do you have six or more drinks on one occasion: Less than monthly AUDIT-C Alcohol total score: 3 Non-prescribed substance use: denies use Caffeine: Yes (cup of tea twice a week) service: No Meds Home Medications and Allergies Home Medications Medication Instructions Recorded Confirmed Type lorazepam 0.5 mg tablet (Ativan) 0.5 mg PO Q6H PRN 06/04/22 06/29/22 History sertraline 50 mg tablet 50 mg PO DAILY 06/04/22 06/29/22 History spironolactone 50 mg tablet 50 mg PO DAILY 06/29/22 06/29/22 History Allergies Allergy/AdvReac Type Severity Reaction Status Date / Time No Known Drug Allergies Allergy Verified 06/04/22 21:28 Exam Narrative: Exam Narrative: GEN: Laying comfortably in bed, does appear tired but is answering questions appropriately, no dysarthria HEENT: Normal external ears, PERRL and EOMIs bilaterally, no scleral icterus. Oropharynx is clear and tongue protrudes midline CV: RRR, No concerning murmurs, rubs, or gallops R: LCTA bilaterally without concerning wheezing, rales, or rhonchi. Breathing comfortably Ext: wwp, no concerning edema Skin: No concerning skin lesions or rashes on exposed skin Neuro: No focal deficits, no resting tremor, gait not observed Psych: Appropriate Const: Vital Signs, click to edit/add: Vital Signs - 24 hr 06/29/22 19:41 06/29/22 19:39 06/29/22 20:05 Temperature 98.0 F 98.0 F Pulse Rate Pulse Rate [Right Pulse Oximeter] 104 H 104 H Respiratory Rate 18 18 Blood Pressure Blood Pressure [Ri ght Upper Arm] 109/61 109/61 Pulse Oximetry 99 99 99 Oxygen Delivery Me thod Room Air Room Air 06/29/22 20:00 06/29/22 20:01 06/29/22 21:38 Temperature 98.0 F Pulse Rate 111 H 114 H Pulse Rate [Right Pulse Oximeter] 104 H Respiratory Rate 16 Blood Pressure 107/67 Blood Pressure [Ri ght Upper Arm] 109/61 Pulse Oximetry 96 97 99 [facility] 06/29/22 20:31 06/29/22 21:02 06/29/22 21:39 Temperature 98.0 F Pulse Rate 95 99 Pulse Rate [Right Pulse Oximeter] 104 H Respiratory Rate 16 16 16 Blood Pressure 117/77 115/57 L Blood Pressure [Ri ght Upper Arm] 109/61 Pulse Oximetry [facility] - H&P: Result Labs Labs: Short CBC 06/29/22 Range/Units 20:07 WBC 7.56 (4.50-11.00) K/uL Hgb 12.8 (12.0-16.0) gm/dL Hct 36.5 (33.0-51.0) % Plt Count 241 (140-440) K/uL BMP 06/29/22 20:07 Sodium 140 Potassium 3.7 Chloride 107 Carbon Dioxide 21 BUN 13 Creatinine 0.7 Glucose 93 Calcium 9.2 Liver Function 06/29/22 Range/Units 20:07 Total Bilirubin 0.5 (0.1-1.5) mg/dL Direct Bilirubin 0.0 (0.0-0.5) mg/dL AST 32 (12-35) U/L ALT 39 H (4-35) U/L Alkaline Phosphatase 84 (40-150) U/L Albumin 4.7 (3.3-5.0) g/dL EEG # [id number] ? Procedure Date: June 17, 2022 ? Clinical History: 21 y/o with spells. ? Recording Conditions: [id number] video EEG recording performed during wakefulness and sleep. ? EEG Description: Background rhythm in the quiet awake state consisted of a posterior dominant rhythm of 10 Hz. The rhythm was symmetrical and attenuated as a normal response to eye opening. ? There was waxing and waning of background rhythm suggesting a drowsy state. Vertex sharp waves and sleep spindles were present indicating stage N1/N2 sleep. ? There was intermittent sharply-contoured left parietotemporal theta slowing maximal at electrodes T7 and P3. ? Activations: During hyperventilation minimal slowing was seen. Photic stimulation elicited no EEG abnormalities. ? Patient Events: None ? EKG Channel: Regular rhythm ? [facility] EEG Classification: Abnormal II (awake, drowsy, asleep) Intermittent slowing, regional left parietotemporal ? Clinical Interpretation: 1. This EEG shows evidence of left parietotemporal functional cerebral disturbance. 2. No definite epileptiform potentials were seen. 3. If clinically indicated, a prolonged video EEG monitoring may provide additional diagnostic information. Assessment and Plan Assessment and plan (1) Episode of shaking: Status: Acute Assessment and Plan: Unclear if these symptoms are representing true seizure activity. Patient is under the care of Neurology, and they have recommended a prolonged video EEG, which has already been ordered and needs to be scheduled by patient. Discussed the case with Dr. Pearl, on-call neurologist for [facility] Neurology, does not recommend any additional treatment or medications at this time, but rather, follow-up with Neurology and monitoring overnight. (2) Meningioma: Problem comment: 7mm frontal convexity on 06/02/2022 MRI Status: Acute (3) Anxiety: Status: Acute Plan - per above - anticipate short hospital stay and [facility] for ppx - patient did give verbal permission for me to update her parents; I did attempt to call both of her parents on their cell phones but neither had voicemail availability
[2022-06-29 23:35] LABS: SARS PCR* Negative SARS-CoV-2 (Negative)
[2022-06-30 02:56] VITALS: BP 105/71; PULSE 68; RESP 16; TEMP 36.7; O2SAT 98
--- NOTE | 2022-06-30 05:26 | PC.NURSE ---
[id number] Pt arrived from ED approx 2130, alert and oriented, denies pain or headache, slightly drowsy but stayed awake during admission process. Approx 2240 Pt sat up in bed, arms and neck tightened up for approx 3-5 seconds, stopped and repeated approx 10 seconds later for another 3-5 sec. Pt able to follow direction during episode and layed back down. MD updated about event, no new orders, MD spoke with pt in room. no further episodes remainder of shift and pt slept well. vitals WNL at all checks.
[2022-06-30 07:00] VITALS: BP 107/67; PULSE 70; RESP 12; TEMP 36.3; O2SAT 100
[2022-06-30] MEDS: IBUPROFEN 400 MG TABLET PO (07:49)
[2022-06-30 08:46] VITALS: PULSE 62
[2022-06-30] MEDS: SPIRONOLACTONE 25 MG TABLET 50 MG PO (08:52)
[2022-06-30] MEDS: SERTRALINE 50 MG TABLET PO (08:54)
[2022-06-30 11:00] VITALS: BP 122/79; PULSE 91; O2SAT 98
--- NOTE | 2022-06-30 11:15 | PM.IMPN1 ---
Subjective Date Seen: 06/30/22 Interval history: Clinical Interpretation: 1. This EEG shows evidence of left parietotemporal functional cerebral disturbance. 2. No definite epileptiform potentials were seen. 3. If clinically indicated, a prolonged video EEG monitoring may provide additional diagnostic information. ? ? ICD-10-CM ? 1. Meningioma (HC) D32.9 EEG ? ? MR BRAIN W/WO CONTRAST 2. Nonspecific paroxysmal spell R40.4 ? ? The patient does present primarily for evaluation of her spells. These do not appear to be expected semiology for epilepsy. The length of the spell and its generalization despite the lack of loss of consciousness argue against epilepsy as the primary etiology. The patient seems appropriately managed at the moment with her as needed medication and ongoing visits with therapy etc. ? The patient does have the incidental finding of what does appear to be a calcific mass most likely a meningioma in the right frontal convexity. I reviewed this and agree with the findings as noted. I am doubtful that this is the nidus of the patient's spells although this is a possibility and I do feel that given the mass that an EEG is warranted and I have help arrange this. ? I also feel that given the only just discovered nature of the mass that a follow-up image in 3 months is well within reason to be certain that this is a benign process that can be followed at this point. I did not embark on a neoplastic survey at this point. ? I would like to follow-up with the patient at a minimum of 3 months and I will be happy to see her sooner should symptoms accelerate otherwise change in an unexpected fashion. ? Time spent today was 45 minutes with careful radiographic review, counseling and care coordination taking up more than 50% of our time together. We had a good 15 minutes spent on discussion of the patient's circumstance. ? I believe all questions are answered at this time. I be happy to discuss her case with you. ? Exam Const: Vital Signs, click to edit/add: Vital Signs - 24 hr 06/29/22 19:41 06/29/22 19:39 06/29/22 20:05 Temperature 98.0 F 98.0 F Pulse Rate Pulse Rate [Pulse Oximeter] Pulse Rate [Right Pulse Oximeter] 104 H 104 H Respiratory Rate 18 18 Blood Pressure Blood Pressure [Le ft Arm] Blood Pressure [Ri ght Upper Arm] 109/61 109/61 Pulse Oximetry 99 99 99 Oxygen Delivery Me thod Room Air Room Air 06/29/22 20:00 06/29/22 20:01 06/29/22 21:33 Temperature 98.5 F Pulse Rate 111 H 114 H Pulse Rate [Pulse Oximeter] 96 Pulse Rate [Right Pulse Oximeter] Respiratory Rate 16 Blood Pressure 107/67 Blood Pressure [Le ft Arm] 127/80 Blood Pressure [Ri ght Upper Arm] Pulse Oximetry 96 97 98 Oxygen Delivery Me thod Room Air 06/29/22 21:38 06/29/22 20:31 06/29/22 21:02 Temperature 98.0 F Pulse Rate 95 99 Pulse Rate [Pulse Oximeter] Pulse Rate [Right Pulse Oximeter] 104 H Respiratory Rate 16 16 16 Blood Pressure 117/77 115/57 L Blood Pressure [Le ft Arm] Blood Pressure [Ri ght Upper Arm] 109/61 Pulse Oximetry 99 Oxygen Delivery Me thod Room Air 06/29/22 21:39 06/29/22 21:54 06/29/22 21:54 Temperature 98.0 F 98.3 F Pulse Rate Pulse Rate [Pulse Oximeter] 84 Pulse Rate [Right Pulse Oximeter] 104 H Respiratory Rate 16 16 16 Blood Pressure Blood Pressure [Le ft Arm] 122/76 Blood Pressure [Ri ght Upper Arm] 109/61 Pulse Oximetry 99 98 Oxygen Delivery Me thod Room Air Room Air 06/29/22 23:00 06/29/22 23:21 06/30/22 02:56 Temperature 98.0 F Pulse Rate 84 Pulse Rate [Pulse Oximeter] 84 68 Pulse Rate [Right Pulse Oximeter] Respiratory Rate 16 16 Blood Pressure Blood Pressure [Le ft Arm] 105/71 Blood Pressure [Ri ght Upper Arm] Pulse Oximetry 98 Oxygen Delivery Me thod Room Air 06/30/22 08:46 06/30/22 07:00 06/30/22 07:00 Temperature 97.4 F L Pulse Rate 62 Pulse Rate [Pulse Oximeter] 70 70 Pulse Rate [Right Pulse Oximeter] Respiratory Rate 12 12 Blood Pressure Blood Pressure [Le ft Arm] 107/67 Blood Pressure [Ri ght Upper Arm] Pulse Oximetry 100 Oxygen Delivery Me thod Room Air Labs Labs: Laboratory Results - last 24 hr 06/29/22 06/29/22 06/29/22 20:07 20:07 20:07 WBC 7.56 RBC 4.33 Hgb 12.8 Hct 36.5 MCV 84 MCH 30 MCHC 35 RDW Coeff of Amparo 11.9 Plt Count 241 Neut % (Auto) 67.7 Lymph % (Auto) 23.3 [place] % (Auto) 7.7 Eos % (Auto) 0.7 Baso % (Auto) 0.5 Neut # (Auto) 5.12 Lymph # (Auto) 1.76 [place] # (Auto) 0.60 Eos # (Auto) 0.05 Baso # (Auto) 0.04 Abs Immat Gran (auto) 0.01 Sodium 140 Potassium 3.7 Chloride 107 Carbon Dioxide 21 BUN 13 Creatinine 0.7 Estimated Creat Clear 129.32 Estimated GFR 127 Glucose 93 Calcium 9.2 Total Bilirubin 0.5 Direct Bilirubin 0.0 AST 32 ALT 39 H Alkaline Phosphatase 84 Total Protein 8.2 Albumin 4.7 SARS-CoV-2 (PCR) Negative SARS-CoV-2
[2022-06-30 16:39] VITALS: BP 122/79; PULSE 91
--- NOTE | 2022-06-30 16:42 | PC.NURSE ---
shift [id number] Pt this shift fatigued. Per pt report, feels weak. Pt dropped medication cup while bringing it to mouth, pills retrieved on blanket. Tested bilat information lead strength, started off weak and progressed to a strong information lead. Full ROM of head without pain. Tremor/shaking episode observed x2 in morning while moving upright in bed. Perinatal Coordinator instructed pt to take deep breaths through it which seemed to help relax pt. TELE reading was irregular. Palpated pulse and it was irregular. 12 lead ordered and showed NSR. Pt reported meals past 48-72 hrs as 1-2 meals per day. At discharge, marine underwriter educated pt on eating a well rounded diet with healthy protein, whole grains, and fruits and vegetables. Instructions regarding ITALIA given. Perinatal Coordinator and DICTAPHONE TECHNICIAN attempted to schedule f/u with neuroscience institute but was not successful. Pt instructed to expect call with in two days from clinic and if no call, pt instructed to call and schedule for EEG. Pt showered independently, IV dc'd for discharge. Pt ambulated by self.
--- NOTE | 2022-06-30 20:33 | P.DS_ITS ---
DS: Providers Provider Date Seen: 06/30/22 Date of admission: 06/29/22 21:26 Primary care physician: Ashlee Nation MD Admitting Clinician: Rosa Hoover MD Attending Physician on discharge: Clemencia Karimi MD Date of Discharge: 06/30/22 DS: Diagnosis Discharge Diagnosis (1) Episode of shaking: Status: Acute (2) Meningioma: Status: Acute Problem details: 7mm frontal convexity on 06/02/2022 MRI - not felt related to current neuro concerns (3) Anxiety: Status: Acute DS: Summary Hospital Course Hospital Course: HOSPITALIST DISCHARGE SUMMARY ATTENDING PHYSICIAN: Katerina Karimi MD FINAL DIAGNOSIS: episodes - shaking pseudoseizures anxiety HOSPITAL FOLLOWUP ISSUES: 1. per previous plan per neurology, 72 hour video EEG. [facility] neurology will be reaching out. 2. previous planned epilepsy specialist appt next week. REFERRALS WHILE ADMITTED: n/a REFERRALS AFTER DISCHARGE: neurology subspecialty BRIEF HOSPITAL COURSE: Ekta was admitted overnight under observation. See H/P for further detail. Minimal symptoms overnight. she remained stable. I discussed with her mother (IM ) and we are sending Ekta back to the [facility] with outpatient neurology appts and tests. VITAL SIGN, MEDICATION, LAB/MICRO, IMAGING SUMMARY (full details available in account tabs or by records request) ? DISCHARGE MEDICATIONS: See Reconciled list - no new meds. REVIEW OF SYSTEMS No new chest pain or dyspnea Pain controlled No voiding difficulties Tolerating diet challenge PHYSICAL EXAM: CONSTITUTIONAL:? tired; alert and insightful VITAL SIGNS: see record.? HEENT: Normocephalic, atraumatic. PERRL, EOMI, conjunctivae pink, no scleral icterus. Ears and nose externally normal. Pharynx normal. NECK: No JVD. No carotid bruit, no thyromegaly, no adenopathy. CHEST:? Clear to auscultation bilaterally.? HEART: S1 and S2 normal.? Edema 2+.? This is improved from baseline at admission. ABDOMEN: Soft, nontender. Normal bowel sounds.? Obese. MUSCULOSKELETAL: No gross joint deformity or swelling. NEURO: Cranial nerves intact.? Grossly intact.? No asymmetric findings. SKIN:? No rashes, petechiae, concerning changes PSYCHIATRIC: Mood euthymic. DISPOSITION: ? Time spent on discharge 37 minutes. Status at Discharge Overall status at discharge: patient is not back to baseline Time Spent with Patient Time attestation: Total time spent providing and/or coordinating discharge services: Time spent: Greater than 30 minutes Exam Const: Vital Signs, click to edit/add: Vital Signs - 24 hr 06/29/22 21:33 06/29/22 21:38 06/29/22 21:02 Temperature 98.5 F 98.0 F Pulse Rate 99 Pulse Rate [Pulse Oximeter] 96 Pulse Rate [Right Pulse Oximeter] 104 H Respiratory Rate 16 16 16 Blood Pressure 115/57 L Blood Pressure [Le ft Arm] 127/80 Blood Pressure [Ri ght Upper Arm] 109/61 Pulse Oximetry 98 99 Oxygen Delivery Nv thod Room Air Room Air 06/29/22 21:39 06/29/22 21:54 06/29/22 21:54 Temperature 98.0 F 98.3 F Pulse Rate Pulse Rate [Pulse Oximeter] 84 Pulse Rate [Right Pulse Oximeter] 104 H Respiratory Rate 16 16 16 Blood Pressure Blood Pressure [Le ft Arm] 122/76 Blood Pressure [Ri ght Upper Arm] 109/61 Pulse Oximetry 99 98 [facility] Room [facility] 06/29/22 23:00 06/29/22 23:21 06/30/22 02:56 Temperature 98.0 F Pulse Rate 84 Pulse Rate [Pulse Oximeter] 84 68 Pulse Rate [Right Pulse Oximeter] Respiratory Rate 16 16 Blood Pressure Blood Pressure [Le ft Arm] 105/71 Blood Pressure [Ri ght Upper Arm] Pulse Oximetry 98 Oxygen Delivery Nv thod Room Air 06/30/22 08:46 06/30/22 07:00 06/30/22 07:00 Temperature 97.4 F L Pulse Rate 62 Pulse Rate [Pulse Oximeter] 70 70 Pulse Rate [Right Pulse Oximeter] Respiratory Rate 12 12 Blood Pressure Blood Pressure [Le ft Arm] 107/67 Blood Pressure [Ri ght Upper Arm] Pulse Oximetry 100 Oxygen Delivery Nv thod Room Air 06/30/22 11:00 06/30/22 16:39 Temperature Pulse Rate 91 Pulse Rate [Pulse Oximeter] 91 Pulse Rate [Right Pulse Oximeter] Respiratory Rate Blood Pressure 122/79 Blood Pressure [Le ft Arm] 122/79 Blood Pressure [Ri ght Upper Arm] Pulse Oximetry 98 [facility] DS: Data Data Completed and Pending Labs on day of discharge: Labs from last 24 hours 06/29/22 06/29/22 20:07 20:07 Sodium 140 Potassium 3.7 Chloride 107 Carbon Dioxide 21 BUN 13 Creatinine 0.7 Estimated Creat Clear 129.32 Estimated GFR 127 Glucose 93 Calcium 9.2 Total Bilirubin 0.5 Direct Bilirubin 0.0 AST 32 ALT 39 H Alkaline Phosphatase 84 Total Protein 8.2 Albumin 4.7 SARS-CoV-2 (PCR) Negative SARS-CoV-2 Discharge Plan Discharge Disposition: Home, Self-Care Date of Admission: 06/29/22 21:26 Primary Care Provider: Ashlee Nation Condition: Stable Anticipated Discharge Date/Time: 06/30/22 11:36 Discharge Medications: Continued sertraline 50 mg tablet 50 mg PO DAILY lorazepam [Ativan] 0.5 mg tablet 0.5 mg PO Q6H PRN spironolactone 50 mg tablet 50 mg PO DAILY Discharge Orders: Discharge Order (Routine); Ordered 06/30/22 Ordered By: Katerina Karimi Patient Education: Generalized Anxiety Disorder (GEN) Activity Level: Activity as Tolerated Discharge Diet: Regular Follow Up Appointments: Ashlee Nation MD [Primary Care Provider] - 07/03/22 1:00 pm (Follow up with Dr. marcos Will will call you with EEG Appointment after our Physician consults) Forms: GITR Info Instructions Discharge Comments: EEG (video) as previously ordered is being organized by Dr. Ravindra Piña's office
== END 2022-06-30 13:35 | disposition home or self-care (01) ==
LOC: ED 21:27 → MEDSURG 21:31
PROVIDERS: Admitting Provider Family Medicine; Emergency Provider Family Medicine; PCP Family Medicine; Visit Provider Family Medicine
DX: R25.1 Tremor, unspecified (principal); F41.9 Anxiety disorder, unspecified; D32.9 Benign neoplasm of meninges, unspecified; Z86.69 Personal history of other diseases of the nervous system and sense organs
CPT/HCPCS: 36415; 80048; 80076; 85025; 87635; 93005; 94761; 96360; 99284; 99285; G0378; A9270; J7120